=== PATIENT | female | born 1960 | race Caucasian/White ===

== ENCOUNTER 2022-06-05 01:43 | Emergency (ER) | payer OTHER, MEDICAID, SELFPAY ==
--- NOTE | 2022-06-05 01:53 | DI.RAD.S_ITS ---
PROCEDURE: XR RIBS LT MIN 3V W CXR1V INDICATIONS: eval for fracture TECHNIQUE: 3 views of the left ribs were acquired, along with a single view chest. COMPARISON: None. FINDINGS: Surgical changes and devices: None. Bones and chest wall: No fractures or dislocations. No suspicious bony lesions. Overlying soft tissues appear unremarkable. Lungs and pleura: No pleural effusions or pneumothorax. Lungs appear clear. Mediastinum: Mediastinal contours appear normal. Heart size is normal. IMPRESSION: No visualized acute fracture or dislocation. However, if clinical concern and/or pain persist, short interval imaging followup in 7-10 days is recommended, as occult injury cannot be definitively excluded. The above findings are concordant with preliminary report. Dictated by: Bianca Bourne M.D. on 06/05/2022 at 9:41 Approved by: Bianca Bourne M.D. on 06/05/2022 at 9:41
[2022-06-05 01:55] VITALS: BP 138/79; PULSE 97; RESP 14; TEMP 37.1; O2SAT 98; BMI 18.8
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
[2022-06-05] MEDS: HYDROCODONE/ACET 5/325 PREPACK 1 BOTTLE MISC (03:24)
== END 2022-06-05 04:13 | disposition home or self-care (01) ==
PROVIDERS: Emergency Provider Emergency Medicine; PCP Family Medicine
DX: S20.212A Contusion of left front wall of thorax, initial encounter (principal); Y04.8XXA Assault by other bodily force, initial encounter
CPT/HCPCS: 71101; 99281; 99283